=== PATIENT | male | born 1960 | race Caucasian/White ===

== ENCOUNTER 2016-08-02 13:17 | Emergency (ER) | payer OTHER ==
[~2016-08-02] VITALS: Ht 177.8 cm; Wt 120.2 kg
--- NOTE | 2016-08-02 13:52 | ED PSYCHIATRIC COMPLAINT ---
History of Present Illness General Chief Complaint: ETOH/Drug Related Complaint Stated Complaint: REQ ETOH DETOX Source: patient Exam Limitations: no limitations Vital Signs & Intake/Output Vital Signs & Intake/Output Vital Signs Date Time Temp Pulse Resp B/P Pulse O2 O2 Flow FiO2 Ox Delivery Rate 08/02 1548 98.9 08/02 1523 98.9 77 18 136/84 04 1523 98.9 77 18 136/84 98 Room Air 08/02 1516 96 Room Air 08/02 1329 98.4 101 16 171/89 97 Room Air Allergies Coded Allergies: No Known Allergies (08/02/16) Reconcile Medications Chlordiazepoxide HCl 25 MG CAPSULE 1 CAP PO AD WITHDRAWAL DAY 1- TAKE THREE TIMES A DAY DAY 2- TAKE TWO TIMES A DAY DAY 3- TAKE ONCE A DAY Multiple Vitamin (Multivitamins) 1 EACH TABLET 1 TAB PO DAILY ETOH Nicotine (Nicotine Patch) 21 MG/24 HOUR PATCH.TD24 1 PAT TOP DAILY SMOKING ( Reported) Omeprazole 20 MG CAPSULE.DR 1 CAP PO DAILY GI (Reported) Triage Note: PT SEEKING ETOH DETOX, DETOXED AT [facility] APPROX 1 MONTH AGO AND BEGAN DRINKING APPROX 2 WEEKS AGO, AVERAGING HALF HALF PINT OF WHISKEY DAILY. LAST DRANK 2 HOURS AGO. DENIES WITHDRAWAL SEIZURES OR DT'S BUT HAS HAD VISUAL AND AUDITORY DISTURBANCES WHILE DETOXING. LONGEST SOBRIETY 15 YEARS. 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 POLYSUB USE IN PAST, NONE CURRENT. NEUROS INTACT, DENIES CP/SOB IN TRIAGE. STATES HE WANTS DETOX BUT NO FACILITIES WILL ADMIT HIM INPATIENT. DENIES SI/GARO AND CONTRACTS FOR SAFETY WHILE IN HOSPITAL Triage Nurses Notes Reviewed? yes Onset: Gradual Duration: constant Severity: moderate Severity Numbers: 5 HPI: Patient is a 56-year-old male with a past medical history of polysubstance abuse last illicit drug use per patient was in the fall in which patient also admits to alcohol dependency where he was admitted to [facility] approximately one month ago where 1 week after his discharge he began drinking again in which patient also had difficulty following up with long-term inpatient facilities due to insurance Patient's last alcohol beverage was a half appointment of whiskey this morning. Patient denies any history of alcohol withdrawal seizures Patient currently denies any suicidal or homicidal ideation or illicit drug use Patient does state that he has intermittent tinnitus and denies any visual hallucinations. Patient lives in a private residence with who is aware of his emergency room visit patient was brought in by father (TALIA BARGER) Past History Travel History Traveled to [place] past 21 day No Medical History Any Pertinent Medical History? see below for history Neurological: CVA EENT: NONE Cardiovascular: NONE Respiratory: NONE Gastrointestinal: NONE Hepatic: ? HEPATITIS Renal: NONE Musculoskeletal: CHRONIC PAIN Psychiatric: alcohol dependence, depression, insomnia Endocrine: NONE Blood Disorders: NONE Cancer(s): NONE Surgical History Surgical History: non-contributory Psychosocial History What is your primary language Angolan Tobacco Use: Current Daily Use Daily Tobacco Use Amount/Type: => 5 Cigarettes daily ETOH Use: alcoholic Family History Hx Contributory? No (TALIA BARGER) Review of Systems Review of Systems Constitutional: Reports: no symptoms. EENTM: Reports: no symptoms. Respiratory: Reports: no symptoms. Cardiovascular: Reports: no symptoms. GI: Reports: no symptoms. Genitourinary: Reports: no symptoms. Musculoskeletal: Reports: no symptoms. Skin: Reports: no symptoms. Neurological/Psychological: Reports: see HPI. Hematologic/Endocrine: Reports: no symptoms. Immunologic/Allergic: Reports: no symptoms. All Other Systems: Reviewed and Negative (TALIA BARGER) Physical Exam Physical Exam General Appearance: no apparent distress, alert, comfortable Neurological/Psychiatric: no motor/sensory deficits, awake, calm Appearance/Memory/Insight: appropriate appearance, appropriate insight, denies illness Behavoir/Eye Contact/Speech: cooperative, normal speech, good eye contact Thoughts/Hallucinations: no apparent hallucination Comments: Well-developed well-nourished person in no acute distress HEENT: Normal EENT exam, extraocular motion intact, no nystagmus. Pupils equally round and reactive to light and accommodation. Nose is atraumatic. External auditory canal and Tympanic membranes clear. Pharynx normal. No swelling or edema. Neck: Supple, no lymphadenopathy, normal range of motion without pain or tenderness Back: Nontender, no CVA tenderness. Cardiovascular: Regular rate and rhythms no murmurs rubs or gallops, normal JVP Respiratory: Chest nontender. No respiratory distress.breath sounds clear to auscultation bilaterally Abdomen: Soft, nontender nondistended, no appreciable organomegaly. Normal bowel sounds. No ascites Extremity: No edema, no calf tenderness to palpation, normal and equal pulses. Neuro: Alert oriented x3, motor sensory normal, cranial nerves II through XII grossly intact. Skin: No appreciable rash on exposed skin, skin is warm and dry. Psych: Mood and affect is normal, memory and judgment is normal. SAD PERSONS Done? patient not suicidal (CARMEN CALDERÓN,TALIA) Progress Differential Diagnosis: drug intoxication, drug overdose, drug withdrawal, electrolyte abnormality, encephalitis, hypoglycemia, hypothyroidism, IC hem/mass /tumor Plan of Care: Orders Procedure Date/time Status CIWA 08/02 135 Active MAGNESIUM 08/02 1350 Complete LIPASE 08/02 1350 Complete ETHANOL 08/02 1350 Complete COMPREHENSIVE METABOLIC PANEL 08/02 1350 Complete CBC WITHOUT DIFFERENTIAL 08/02 1350 Complete AMYLASE 08/02 1350 Complete URINE DRUGS OF ABUSE 08/03 1327 Complete URINALYSIS 08/03 1327 Complete Laboratory Tests 08/02/16 1433: Anion Gap 15, Estimated GFR > 60, BUN/Creatinine Ratio 17.1, Glucose 143 H, Calcium 9.7, Magnesium 1.8, Total Bilirubin 1.5 H, AST 20, ALT 39, Alkaline Phosphatase 69, Total Protein 7.7, Albumin 4.7, Globulin 3.0, Albumin/Globulin Ratio 1.6, Amylase < 30 L, Lipase 32, CBC w Diff NO MAN DIFF REQ, RBC 5.66, MCV 81.6, MCH 27.1, RDW 14.3, MPV 9.9, Gran % 69.7, Lymphocytes % 22.6, Monocytes % 4.8, Eosinophils % 2.4, Basophils % 0.5, Absolute Granulocytes 7.7 H, Absolute Lymphocytes 2.5, Absolute Monocytes 0.5, Absolute Eosinophils 0.3, Absolute Basophils 0.1, PUBS MCHC 33.2, Serum Alcohol 23.0 08/02/16 1418: Urine Opiates Screen < 100.00, Methadone Screen < 40, Barbiturate Screen < 60, Ur Phencyclidine Scrn < 6.00, Amphetamines Screen 101, U Benzodiazepines Scrn < 85, Urine Cocaine Screen < 50, Urine Cannabis Screen < 5.00, Urine Color YEL, Urine Clarity CLEAR, Urine pH 6.0, Ur Specific [place] 1.015, Urine Protein NEG, Urine Ketones NEG, Urine Nitrite NEG, Urine Bilirubin NEG, Urine Urobilinogen 0.2, Ur Leukocyte Esterase NEG, Ur Microscopic EXAM NOT REQUIRED, Urine Hemoglobin NEG, Urine Glucose NEG Nursing does note to me that patient has A CIWA OF 4 Patient currently alcohol level is [address] [facility] policy patient does not fit admission criteria for alcohol withdrawal Patient denies any homicidal or suicidal ideation Patient was given prescriptions for [facility] outpatient ETOH withdrawal dependency prescription protocol Patient was strongly advised to follow-up with the list of referrals for alcohol inpatient treatment Upon discharge patient looks well no apparent distress and will comply discharge ejection's and had no questions (TALIA BARGER) Departure Departure Disposition: HOME OR SELF CARE Condition: Stable Clinical Impression Primary Impression: Alcohol dependence Referrals: JEFFREY CHAVES MD (PCP/Family) Additional Instructions: As discussed once you are discharged from the emergency room, please call a list of inpatient detoxification facilities for further evaluation treatment. Begin the prescription of Librium as directed for your symptoms and begin the prescription a multivitamin, prescriptions are waiting at your pharmacy. If symptoms worsen return to emergency room Departure Forms: Customer Survey General Discharge Information Prescriptions: Current Visit Scripts Chlordiazepoxide HCl 1 CAP PO AD #6 CAP DAY 1- TAKE THREE TIMES A DAY DAY 2- TAKE TWO TIMES A DAY DAY 3- TAKE ONCE A DAY Multiple Vitamin (Multivitamins) 1 TAB PO DAILY #30 TAB (TALIA BARGER) PA/GENETICIST Co-Sign Statement Statement: ED Attending supervision documentation- [] I saw and evaluated the patient. I have also reviewed all the pertinent lab results and diagnostic results. I agree with the findings and the plan of care as documented in the PA's/GENETICIST's documentation. [X] I have reviewed the ED Record and agree with the PA's/GENETICIST's documentation. [] Additions or exceptions (if any) to the PAs/GENETICIST's note and plan are summarized below: [] (CATHIE GRACE,ILIANA)
[2016-08-02 14:46] LABS: ABSOLUTE BASOPHIL COUNT 0.1 /CUMM (0.0-0.2); ABSOLUTE EOSINOPHIL COUNT 0.3 /CUMM (0.0-0.7); ABSOLUTE GRANULOCYTE CT 7.7 /CUMM (1.4-6.5); ABSOLUTE LYMPH COUNT 2.5 /CUMM (1.2-3.4); ABSOLUTE MONOCYTE COUNT 0.5 /CUMM (0.10-0.60); BASOPHIL % 0.5 % (0.0-2.0); EOSINOPHIL % 2.4 % (0-5); GRANULOCYTE % 69.7 % (42.2-75.2); HEMATOCRIT 46.2 % (42-52); MEAN CORPUSCULAR HGB 27.1 PG (27.0-31.0); MEAN CORPUSCULAR HGB CONC 33.2 G/DL (33.0-37.0); MEAN CORPUSCULAR VOLUME 81.6 FL (80.0-94.0); MEAN PLATELET VOLUME 9.9 FL (7.4-10.4); PLATELET COUNT 187 /CUMM (130-400); RBC DISTRIBUTION WIDTH 14.3 % (11.5-14.5); RED BLOOD CELL CT 5.66 /CUMM (4.70-6.10)
[2016-08-02 15:23] VITALS: BP 136/84
[2016-08-02] MEDS ORDERED: OMEPRAZOLE20 M2 PO (15:26)
[2016-08-02] MEDS ORDERED: NICOTINE PATCH1 EAC3 TOP (15:27)
[2016-08-02] MEDS ORDERED: CHLORDIAZEPOXID25 M3 PO (15:54)
[2016-08-02] MEDS ORDERED: MULTIVITAMINS1 EAC9 PO (15:54)
== END 2016-08-02 16:10 ==
LOC: ERH 13:17
PROVIDERS: Physician Assistant
DX: F10.20 Alcohol dependence, uncomplicated (principal)
CPT/HCPCS: 80307; 81003; G0480